=== PATIENT | female | born 1950 | race Caucasian/White ===

== ENCOUNTER 2025-07-25 11:59 | Emergency (ER) | payer MEDICARE, OTHER ==
[~2025-07-25] VITALS: Ht 154.9 cm; Wt 86.4 kg
[2025-07-25 13:06] VITALS: BP 114/78; PULSE 95; RESP 18; O2SAT 92
--- NOTE | 2025-07-25 14:39 | Physician Documentation ---
History of Present Illness ~ Chief Complaint: Constipation Stated Complaint: POST OP COMPLICATIONS Time Seen by MD: 13:51 Mode of Arrival: POV HPI 75-year-old female, recent bladder/pelvic wall surgery, who presents with constipation She tells me that she had surgery on July 17, pelvic wall surgery for bladder prolapse. Since that time, she has not had a bowel movement. She did go to an outside hospital 2 days ago, had a workup that was unremarkable, had 7 enemas without success. Was discharged with ongoing laxatives. She tells me she has been taking multiple laxatives daily for many days. She is having worsening abdominal pain and distention. She is not passing gas. She was on opiate pain medication for 2 days, but has not taken any for the past week Medication Reconciliation Allergies: Coded Allergies: Cephalosporins (Verified Allergy, Unknown, 07/25/25) Penicillins (Verified Allergy, Unknown, 07/25/25) Review of Systems Constitutional: Denies: fever Gastrointestinal: Reports: abdomen distended, abdominal pain, constipated; Denies: vomiting Physical Exam Vital Signs: Temperature: 97.8, Source: Temporal, Heart Rate: 95, Respiratory Rate: 18, BP: 114/78, Pulse Oximetry: 92, Weight: 86.360 Oxygen Flow Rate: 0 Physical Exam General: This is an uncomfortable appearing older woman, family at bedside HEENT: Atraumatic, oropharynx appears dry Heart: Regular rate and rhythm, normal-appearing peripheral perfusion Lungs: normal work of breathing, normal oxygen saturation on room air Abdomen: Distended tight abdomen. Tender to palpation diffusely. No peritoneal signs. Active bowel sounds, they are not high pitched Neuro: Alert and oriented Psychiatric: Appears uncomfortable Progress Results/Orders Results/Orders Orders - ENMA RAMIREZ MD Ct Abdomen Pelvis (07/25/25 15:35) Completed Orders - ENMA RAMIREZ MD CMP (07/25/25 14:36) Cbc/Diff (07/25/25 14:36) Lipase (07/25/25 14:36) Ct Abdomen Pelvis (07/25/25 15:35) Methylnaltrexone Br Inj (Relistor Inj (07/25/25 14:40) Iohexol 300mg/Ml 100ml Inj. (Omnipaque-3 (07/25/25 14:47) Medications Received in ER Medications (Trade) Dose Ordered Sig/Cherie Route PRN Reason Start Time Stop Time Status Last Admin Dose Admin (Relistor inj SubQ only) 12 mg ONCE ONCE SQ 07/25/25 14:40 07/25/25 14:41 DC 07/25/25 15:05 12 MG Vital Signs 07/25/25 07/25/25 07/25/25 12:38 13:06 18:11 Temp 97.8 97.8 Pulse 105 95 Resp 18 18 B/P (MAP) 150/95 114/78 (90) Pulse Ox 98 92 O2 Flow Rate 0 Laboratory Tests Test 07/25/25 14:48 White Blood Count 12.3 H Red Blood Count 4.82 Hemoglobin 14.8 Hematocrit 42.8 Mean Corpuscular Volume 88.7 Mean Corpuscular Hemoglobin 30.7 Mean Corpuscular Hemoglobin Concent 34.6 Red Cell Distribution Width 13.4 Platelet Count 327 Mean Platelet Volume 8.1 Neutrophils (%) (Auto) 77.2 H Lymphocytes (%) (Auto) 12.6 L Monocytes (%) (Auto) 7.9 Eosinophils (%) (Auto) 1.9 Basophils (%) (Auto) 0.4 Neutrophils # (Auto) 9.5 H Lymphocytes # (Auto) 1.5 Monocytes # (Auto) 1.0 H Eosinophils # (Auto) 0.2 Basophils # (Auto) 0.1 CBC Comment Sodium Level 139 Potassium Level 3.3 L Chloride Level 98 L Carbon Dioxide Level 31.4 Anion Gap 10 Blood Urea Nitrogen 12 Creatinine 0.68 Estimated GFR/1.73 m2 85 BUN/Creatinine Ratio 17.6 Glucose Level 103 Calcium Level 8.9 Total Bilirubin 0.6 Aspartate Amino Transf (AST/SGOT) 17 Alanine Aminotransferase (ALT/SGPT) 23 Alkaline Phosphatase 57 Total Protein 7.3 Albumin 3.6 Globulin 3.7 Albumin/Globulin Ratio 1.0 L Lipase 31 Chemistry Comments EKG/XRAY/CT/US/VASC/MRI CT : Impression I personally interpreted the CT scan, and this shows concern for possible ileus, with significantly distended small and large bowel fluid-filled Medical Decision Making Additional information obtaine: family Findings Further history obtained from the family member Diff Dx GI Bleed:Consideration: Include: Diverticulitis Diff Dx Pain:Considerations: Include: Constipation Diff Dx N/V/D:Considerations: Include: Electrolyte imbalance Diff Dx Rectal:Considerations: Include: Impaction Additional Comments The patient presents with abdominal pain and distention, after recent bladder s urgery. Per her history and exam, she is likely very constipated, but could also have a bowel obstruction or other postsurgical complication. After shared decision-making conversation we decided to proceed with a CT scan. She was given a dose of Relistor. CT scan shows ileus with significant fluid in the abdomen. Initially my plan was for admission for further treatment of her ileus. However, immediately after receiving Relistor, she had multiple very large bowel movements and her symptoms greatly improved. Repeat abdominal exam is now soft and minimally tender. Overall, she has improved to the point where she feels comfortable going home. She will be discharged with ongoing bowel treatment and return precautions. Overall this seems consistent with postoperative ileus/opiate induced constipation. Departure Time of Disposition: 18:05 Disposition: 01 HOME / SELF CARE / HOMELESS Impression: Primary Impression: Constipation Additional Impression: Ileus, postoperative Condition: Improved Discharge Instructions: Ileus, Constipation, Adult Referrals: NO PRIMARY CARE PROVIDER (PCP) Education Educated: Patient, Family Educated regarding: diagnosis, treatment, need for follow up Signature Scribe Signature: [email or web address] Attestation: ENMA Parada MD Jul 25, 2025 14:39
[2025-07-25] MEDS ORDERED: iohexol 300mg/ml 100ml inj. ONE (14:47)
[2025-07-25 14:56] LABS: MEAN PLATELET VOLUME 8.1 FL (7.4-10.4); RED CELL DISTRIBUTION WIDTH 13.4 % (11.5-14.5)
[2025-07-25] MEDS: methylnaltrexone br 12mg/0.6ml inj***SubQ only SQ ONE (15:05)
[2025-07-25 15:12] LABS: CREATININE 0.68 MG/DL (0.40-0.90); TOTAL CARBON DIOXIDE 31.4 MMOL/L (24-32); eCRCL 56 ML/MIN; eGFR 85 ML/MIN
--- NOTE | 2025-07-25 16:22 | RADIOLOGY REPORT ---
EXAM: CT CT ABDOMEN PELVIS W/ IV CONTRAST History: Constipation after a bladder surgery about 9 days ago, severe abdominal saniya COMPARISON: None TECHNIQUE: Multidetector spiral CT of the abdomen and pelvis was performed from lung bases to pubic symphysis. Intravenous contrast was administered during this examination. Portal venous imaging was obtained. Axial, coronal and sagittal multiplanar reformats were performed by the technologist on a separate workstation. Radiation Dose : 1. Abdomen/Pelvis: CTDIvol 30.55 mGy, DLP 1662.74 mGy*cm. CONTRAST: Type of contrast: Omnipaque 300 Contrast injected: 100 ml FINDINGS: Lung Bases: No acute or significant lung base finding. Normal heart size. No pleural or pericardial effusion. Liver: Few scattered hepatic cysts. Gallbladder and Biliary Tree: Unremarkable Spleen: Unremarkable Pancreas: The pancreas is normal in appearance without focal lesions or abnormal enhancement. Adrenal Glands: Unremarkable Kidneys: No hydronephrosis. Bladder: Unremarkable Bowel: Fluid-filled distention of the colon with cecum measuring up to 11.6 cm in diameter. Gradual transition distally at the rectum without any high-grade obstruction. Mild fluid-filled distention of a few small-bowel loops. Moderate size hiatal hernia. Ascites: Absent Lymphadenopathy: No mesenteric, retroperitoneal or periportal lymphadenopathy. Abdominal Wall and Mesentery: Unremarkable. Vasculature: The visualized abdominal aorta is normal in size and caliber. Abdominal and pelvic vessels demonstrate normal enhancement. Pelvic Organs: Unremarkable Musculoskeletal: No aggressive focal bony lesions, acute fractures or dislocation. IMPRESSION: Fluid-filled distention of both large and small bowel suggestive of an ileus. Degree of large bowel distention is worse than small bowel dilatation. Radiation optimization: All CT scans at this facility use at least one of these dose optimization techniques: automated exposure control mA and/or kV adjustment per patient size (includes targeted exams where dose is matched to clinical indication) or iterative reconstruction.
[2025-07-25 18:11] VITALS: TEMP 97.8
== END 2025-07-25 19:03 | disposition home or self-care (01) ==
LOC: ER 11:59
DX: K59.00 Constipation, unspecified (principal); K91.89 Other postprocedural complications and disorders of digestive system; K56.7 Ileus, unspecified; Z88.1 Allergy status to other antibiotic agents; Z88.0 Allergy status to penicillin
CPT/HCPCS: 36415; 74177; 80053; 83690; 85025; 96372; 99285; J2212; Q9967